=== PATIENT | male | born 2000 | race Caucasian/White ===

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

== ENCOUNTER 2019-06-25 15:06 | Observation (INO) ==
[2019-06-25 17:36] LABS: Basophils # (auto) 0.01 K/uL (0-0.2); Basophils % (auto) 0.1 %; Eosinophils # (auto) 0.03 K/uL (0-0.5); Eosinophils % (auto) 0.2 %; Hematocrit (blood only) 47.5 % (42-52); Hemoglobin 16.8 g/dL (14.0-18.0); Immature Granulocytes # (auto) 0.03 K/uL (0.00-0.02); Immature Granulocytes % (auto) 0.2 %; Lymphocytes # (auto) 0.76 K/uL (1.2-3.4); Lymphocytes % (auto) 5.4 %; Mean Corpuscular Hemoglobin 31.1 pg (25-34); Mean Corpuscular Hgb Conc 35.4 g/dL (32-36); Mean Platelet Volume 10.9 fL (7.4-10.4); Monocytes # (auto) 0.66 K/uL (0.11-0.59); Monocytes % (auto) 4.7 %; Neutrophils # (auto) 12.56 K/uL (1.4-6.5); Neutrophils % (auto) 89.4 %; Platelet Count 217 K/uL (130-400); RDW Coefficient of Variation 12.7 % (11.5-14.5); RDW Standard Deviation 40.6 fL (36.4-46.3); White Blood Count 14.05 K/uL (4.8-10.8)
[2019-06-25 17:43] LABS: Appearance Urine Turbid (Clear); Bacteria Urine Automated Negative (Negative); Blood Urine Negative (Negative); Cast Urine Automated 0 /lpf (0-5); Color Urine Dark Yellow; Epithelial Cell Urine Auto 0-5 /lpf (0-5); Glucose Urine UA Negative (Negative); Ketones Urine 1+ (Negative); Leukocyte Esterase Urine Negative (Negative); Nitrite Urine Negative (Negative); Protein Urine Negative (Negative); RBC Urine Automated 0-4 /hpf (0-4); Specific Gravity Urine 1.029 (1.000-1.030); Urobilinogen Urine Negative (Negative)
[2019-06-25 17:51] LABS: Albumin Level 4.4 gm/dl (3.4-5.0); BUN Creatinine Ratio 15.4 (10-20); Calcium 9.3 mg/dl (8.5-10.1); Est GFR (Non-African American) 107.9; Potassium 3.8 mmol/L (3.5-5.1)
[2019-06-25 17:53] LABS: Albumin Globulin Ratio 1.1 (0.9-2); Bilirubin,Total 2.3 mg/dl (0.2-1); Globulin 3.9 gm/dl (2.5-4.0); Total Protein 8.3 gm/dl (6.4-8.2)
[2019-06-25 17:54] LABS: Bilirubin Urine Negative (Negative); Ictotest Urine Negative (Negative)
[2019-06-25] MEDS ORDERED: IOVERSOL 100ml IV PRN (19:21)
--- NOTE | 2019-06-25 19:46 | CT Scan Report ---
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 A dose lowering technique was utilized adhering to th e principles of ALARA. COMPARISON STUDY: CT abdomen and pelvis 10/18/2016 FINDINGS: Clear lung bases. There is no pneumatosis or pneumoperitoneum. Imaged inferior cardiac chambers are u nremarkable. Mildly contracted gallbladder. Enlarged spleen measures up to 17.0 cm in length. Pancrea s, adrenal glands and liver appear unremarkable. Kidneys and ureters are within normal limits. Minima l nonspecific urinary bladder wall thickening. Unremarkable prostate. Aorta and IVC are unremarkable. Patency of the hepatic and portal veins. No adenopathy. Trace abdominal pelvic ascites. Partial distention of the large bowel with mild wall thickening seen probably within the hepatic flexure. Postoperative changes from ileocecectomy with end to side ileoco lic anastomosis. There is narrowing at the anastomotic site measuring up to 6 mm with dilated ileum p roximal to the anastomosis measuring up to 3.6 cm transversely. Enteric contrast flows through the an astomotic site into the right hemicolon. Several loops of distal small bowel demonstrate mild circumf erential wall thickening with interloop edema. Mildly prominent lymph nodes of the mesentery are like ly reactive. No sinus tracts or fistulas identified. The soft tissues are within normal limits. Bones appear to be intact. IMPRESSION: 1. Postoperative changes of interval ileocecectomy with end to side ileocolic anastomosis. Narrowing/ stricture at the anastomosis is noted with distended proximal small bowel compatible with partial sma ll bowel obstruction. Reactive associated interloop edema with trace abdominal pelvic ascites. 2. Multiple loops of small bowel within the lower abdomen and pelvis demonstrate wall thickening with additional equivocal wall thickening of the hepatic flexure. Correlate clinically to exclude acute C rohn's disease. 3. No pneumatosis or pneumoperitoneum. 4. Splenomegaly. ACT 112: Negative or not required by law. The above report was generated using voice recognition software. It may contain grammatical, syntax o r spelling errors. Electronically signed by: Jaxon Segura M.D. 06/25/2019 7:44 PM
[2019-06-25] MEDS ORDERED: SODIUM CHLORIDE 0.9% 1000ML 1,000 ML IV STA (19:59)
[2019-06-25] MEDS ORDERED: CIPROFLOXACIN 400 MG/200 ML BAG IV STA (20:04)
[2019-06-25] MEDS ORDERED: metroNIDAZOLE 500 MG/100 ML BAG IV STA (20:04)
--- NOTE | 2019-06-25 20:51 | Emergency Department Note ---
Entered by Erasmo Malik acting as a scribe for Faizan Medeiros MD ED Provider Note CHIEF COMPLAINT: Abdominal pain HISTORY OF PRESENT ILLNESS: The patient is a 18 year old male who presents to the Emergency Room with complaints of worsening mid abdominal pain that started about 2 days ago. The patient states the pain has been colicky since the onset and at its worst he rates it an 8/10. The patient reports that he feels as though he needs to move his bowels but he is unable to resulting in feeling very bloated. The patient notes he has been taking Ibuprofen for the pain but it has not been helping. The patient does have a history of Crohn's disease for which he follows with Dr. [place]. The patient reports that 2 weeks ago he had a colonoscopy with dilatation done. Per his mother, the patient had a partial colectomy 2 years ago. Pt denies LOC, headache, fevers, chills, diaphoresis, visual changes, neck pain, chest pain, breathing difficulties, nausea, vomiting, back pain, melena, hematochezia, urinary symptoms, numbness, weakness, lymphadenopathy, rash, or other complaints. REVIEW OF SYSTEMS: See HPI for pertinent positives and negatives. A total of ten systems were reviewed and were otherwise negative. PMHx/PSHx: Crohn's disease SOCIAL HISTORY: Patient lives at home. PHYSICAL EXAM: GENERAL: Awake, alert, well-appearing, in no distress HENT: Normocephalic, atraumatic. Oropharynx unremarkable. EYES: Normal conjunctiva. Sclera non-icteric. NECK: Inspection normal. Non-tender. Supple. No nuchal rigidity. FROM. No masses. RESPIRATORY: Clear to auscultation. No wheezes. No rales. Normal respiratory effort. CARDIAC: Normal rate. Normal rhythm. No murmurs. No rubs. Extremities warm and well perfused. Pulses equal. No JVD. GI: Soft, non-distended. Mid abdominal tenderness. No rebound or guarding. No masses. RECTAL: Deferred. MUSCULOSKELETAL: Atraumatic. Chest examination reveals no tenderness. The back is symmetrical on inspection without obvious abnormality. There is no CVA tenderness to palpation. No joint edema. LOWER EXTREMITIES: Calves are equal size bilaterally and non-tender. No edema. No discoloration. NEURO: Normal sensorium. No sensory or motor deficits noted. SKIN: No rash or jaundice noted. EMERGENCY DEPARTMENT COURSE: 1652: Past medical records reviewed. The patient was evaluated in room C11B, and a complete history and physical examination were performed. 1901: I reevaluated the patient and updated him on results. 1957: I spoke to Dr. Rosie TOVAR about the patient's case. He recommended having the patient admitted for IV fluids and antibiotics ( Cipro and Flagyl). He also suggested keeping the patient NPO. 2012: I spoke to Dr. Perez - [facility] Hospitalist about the patient's case. He agreed to accept the patient for further evaluation. 2014: I reassessed the patient and updated him on the treatment plan which he is agreeable to. MEDICAL DECISION MAKING: Prior records/ancillary studies reviewed. Triage Nursing notes reviewed and agree them. Additional history obtained from family. The patient's history was concerning for abdominal pain. Differential diagnosis: Etiologies such as complication of Crohn's disease, recurrence of intestinal stricture, appendicitis, diverticulitis, PUD, biliary pathology, UTI, pancr eatitis, obstruction, mesenteric ischemia, aortic pathology, infections, inflammatory bowel disease, renal colic, as well as others were entertained. Physical examination findings: As above. Mild tenderness without rebound or guarding. No active vomiting. ER treatment provided: IV normal saline hydration IV Cipro and IV Flagyl after consultation with GI On reassessment the patient felt better. Diagnostics interpreted by me: The labs revealed mild leukocytosis on CBC. Chemistry panel was unremarkable. Urinalysis negative. Imaging studies: The skin of the abdomen pelvis was performed and reveals a partial small bowel obstruction with stricture at the ileocolic anastomosis site Consultation: A consultation was placed with the GI doctor emergency medicine nurse practitioner Dr. Dylan Hernandez. The case was discussed and diagnostics were reviewed. He recommended IV Cipro and Flagyl, n.p.o. status, IV fluids, and admission by internal medicine. No NG tube recommended as patient has no nausea or vomiting. He will see the patient in the hospital. Patient was made with internal medicine. The patient was vini luated in the ER for further treatment. IMPRESSION: Partial small bowel obstruction Crohn's disease Mid abdominal pain PLAN: Being evaluated by the hospitalist The scribe's documentation has been prepared under my direction and personally reviewed by me in its entirety. I confirm that the note above accurately reflects all work, treatment, procedures, and medical decision making performed by me. 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 Beliefs That Will Affect Care: None Current Living Situation: Family Feels Safe at Home: Yes Smoking Status: Never smoker Second Hand Exposure: No ; Hx Alcohol Use: No Hx Substance Use: No Results & Data Vital Signs Vital Signs - 24 hr 06/25/19 15:25 06/25/19 17:07 06/25/19 17:21 Temperature 36.7 C Temperature Source Oral Pulse Rate 99 H 95 H 101 H Pulse Rate from SpO2 Sensor 97 H 102 H Respiratory Rate 18 17 23 Respiratory Depth Normal Blood Pressure 143/83 H 138/87 Blood Pressure Mean 103 99 Blood Pressure Position Sitting Pulse Oximetry 98 97 97 Oxygen Delivery Method Room Air Room Air Sepsis Recent Fever Within 48 Hours No Sepsis Action Taken by Nursing No Action Required 06/25/19 17:30 06/25/19 17:31 06/25/19 18:00 Temperature Temperature Source Pulse Rate 90 94 H 94 H Pulse Rate from SpO2 Sensor 93 H 94 H 94 H Respiratory Rate 22 21 24 Respiratory Depth Blood Pressure 138/79 130/87 Blood Pressure Mean 93 98 Blood Pressure Position Pulse Oximetry 97 97 97 Oxygen Delivery Method Sepsis Recent Fever Within 48 Hours Sepsis Action Taken by Nursing 06/25/19 18:01 06/25/19 18:30 06/25/19 18:31 Temperature Temperature Source Pulse Rate 96 H 98 H 113 H Pulse Rate from SpO2 Sensor 94 H 94 H 107 H Respiratory Rate 17 18 23 Respiratory Depth Blood Pressure 128/80 Blood Pressure Mean 96 Blood Pressure Position Pulse Oximetry 97 98 98 Oxygen Delivery Method Sepsis Recent Fever Within 48 Hours Sepsis Action Taken by Long-Term Medications Current Medication List: was personally reviewed by me Laboratory Data Attestation: I reviewed the patient's lab results. Result diagrams: 06/25/19 17:05 06/25/19 17:05 Lab Results 06/25/19 06/25/19 06/25/19 Range/Units 17:05 17:05 17:05 WBC 14.05 H (4.8-10.8) K/uL RBC 5.40 (4.7-6.1) M/uL Hgb 16.8 (14.0-18.0) g/dL Hct 47.5 (42-52) % MCV 88.0 (80-100) fL MCH 31.1 (25-34) pg MCHC 35.4 (32-36) g/dL RDW Std Deviation 40.6 (36.4-46.3) fL RDW Coeff of Arely 12.7 (11.5-14.5) % Plt Count 217 (130-400) K/uL MPV 10.9 H (7.4-10.4) fL Immature Gran % (Auto) 0.2 % Neut % (Auto) 89.4 % Lymph % (Auto) 5.4 % [place] % (Auto) 4.7 % Eos % (Auto) 0.2 % Baso % (Auto) 0.1 % Immature Gran # (Auto) 0.03 H (0.00-0.02) K/uL Neut # (Auto) 12.56 H (1.4-6.5) K/uL Lymph # (Auto) 0.76 L (1.2-3.4) K/uL [place] # (Auto) 0.66 H (0.11-0.59) K/uL Eos # (Auto) 0.03 (0-0.5) K/uL Baso # (Auto) 0.01 (0-0.2) K/uL Sodium 139 (136-145) mmol/L Potassium 3.8 (3.5-5.1) mmol/L Chloride 107 (98-107) mmol/L Carbon Dioxide 27 (21-32) mmol/L Anion Gap 5.0 (3-11) BUN 15 (7-18) mg/dl Creatinine 1.00 (0.6-1.4) mg/dl Est Cr Clr Drug Dosing 151.0 ml/min Est GFR ( Amer) 125.0 Est GFR (Non-Af Amer) 107.9 BUN/Creatinine Ratio 15.4 (10-20) Glucose 125 H (70-99) mg/dl Calcium 9.3 (8.5-10.1) mg/dl Total Bilirubin 2.3 H (0.2-1) mg/dl AST 18 (15-37) U/L ALT 54 (12-78) U/L Alkaline Phosphatase 122 H (45-117) U/L Total Protein 8.3 H (6.4-8.2) gm/dl Albumin 4.4 (3.4-5.0) gm/dl Globulin 3.9 (2.5-4.0) gm/dl Albumin/Globulin Ratio 1.1 (0.9-2) Lipase 85 (73-393) U/L Urine Color Dark Yellow Urine Appearance Turbid A (Clear) Urine pH 5.0 (4.5-7.5) Ur Specific [place] 1.029 (1.000-1.030) Urine Protein Negative (Negative) Urine Glucose (UA) Negative (Negative) Urine Ketones 1+ H (Negative) Urine Blood Negative (Negative) Urine Nitrite Negative (Negative) Urine Bilirubin Negative (Negative) Urine Urobilinogen Negative (Negative) Ur Leukocyte Esterase Negative (Negative) Urine WBC (Auto) 1-5 (0-5) /hpf Urine RBC (Auto) 0-4 (0-4) /hpf U Hyaline Cast (Auto) 0 (0-5) /lpf U Epithel Cells (Auto) 0-5 (0-5) /lpf Urine Bacteria (Auto) Negative (Negative) Administered Medications Ioversol (Optiray 320 100ml) 93 ml IV ONCE PRN PRN Reason: Interaction Checking Stop: 06/29/19 19:20 Last Admin: 06/25/19 19:21 Dose: 93 ml Documented by: [id number] Imaging Data Radiologist's Impression: Radiology results as stated below per my review and the radiologist's interpretation: ABDOMEN AND PELVIS CT WITH IV AND ORAL CONTRAST CT DOSE: 698.73 mGy.cm HISTORY: Acute mid abdominal pain with history of inflammatory bowel disease mid abd pain, hx of crohns, recent colon stricture TECHNIQUE: Multiaxial CT images of the abdomen and pelvis were performed following the IV administration of 93 cc of Optiray 320 and oral contrast. A dose lowering technique was utilized adhering to the principles of ALARA. COMPARISON STUDY: CT abdomen and pelvis 10/18/2016 FINDINGS: Clear lung bases. There is no pneumatosis or pneumoperitoneum. Imaged inferior cardiac chambers are unremarkable. Mildly contracted gallbladder. Enlarged spleen measures up to 17.0 cm in length. Pancreas, adrenal glands and liver appear unremarkable. Kidneys and ureters are within normal limits. Minimal nonspecific urinary bladder wall thickening. Unremarkable prostate. Aorta and IVC are unremarkable. Patency of the hepatic and portal veins. No adenopathy. Trace abdominal pelvic ascites. Partial distention of the large bowel with mild wall thickening seen probably within the hepatic flexure. Postoperative changes from ileocecectomy with end to side ileocolic anastomosis. There is narrowing at the anastomotic site measuring up to 6 mm with dilated ileum proximal to the anastomosis measuring up to 3.6 cm transversely. Enteric contrast flows through the anastomotic site into the right hemicolon. Several loops of distal small bowel demonstrate mild circumferential wall thickening with interloop edema. Mildly prominent lymph nodes of the mesentery are likely reactive. No sinus tracts or fistulas identified. The soft tissues are within normal limits. Bones appear to be intact. IMPRESSION: 1. Postoperative changes of interval ileocecectomy with end to side ileocolic anastomosis. Narrowing/stricture at the anastomosis is noted with distended proximal small bowel compatible with partial small bowel obstruction. Reactive associated interloop edema with trace abdominal pelvic ascites. 2. Multiple loops of small bowel within the lower abdomen and pelvis demonstrate wall thickening with additional equivocal wall thickening of the hepatic flexure. Correlate clinically to exclude acute Crohn's disease. 3. No pneumatosis or pneumoperitoneum. 4. Splenomegaly. ACT 112: Negative or not required by law. The above report was generated using voice recognition software. It may contain grammatical, syntax or spelling errors. Electronically signed by: Jaxon Segura M.D. 06/25/2019 7:44 PM Blood Pressure Blood Pressure Findings: Elevated blood pressure Blood Pressure Disposition: further management by hospitalist Discharge Plan Visit Data Chief Complaint: Abdominal Pain Stated Complaint: ABD PAIN, POST-COLONOSCOPY ED Provider: Faizan Medeiros Discharge Problem: Partial small bowel obstruction, Crohn's disease, Central abdominal pain Patient Disposition: Being Evaluated by Hospitalist Forms Stand Alone Forms: Content Circles Prescriptions Prescriptions: No Action Entyvio 300 mg recon soln 300 mg IV .COMPLEX Qty: 1 RF: 0 ibuprofen [Advil] 200 mg Tablet 400 mg PO Q6H PRN (Reason: Pain) RF: 0 Referrals Referrals: PCP,NO [Primary Care Provider] - Discharge Problem: Crohn's disease Qualifiers: Gastrointestinal tract location: unspecified location Digestive disease complication type: unspecified complication Qualified Code(s): K50.919 - Crohn's disease, unspecified, with unspecified complications The scribe's documentation has been prepared under my direction and personally reviewed by me in its entirety. I confirm that the note above accurately reflects all work, treatment, procedures, and medical decision making performed by me.
--- NOTE | 2019-06-25 21:46 | History & Physical Report ---
Date of Service June 25, 2019 Assessment & Plan (1) Partial small bowel obstruction: Clifford is a 18-year-old male with a past medical history of Gilbert's and Crohn's disease who presents with a partial small bowel obstruction. Partial small bowel obstruction Known stricture which was partially dilated on colonoscopy [address] abdomen shows anastomosis stricture, distended proximal small bowel Case discussed with GI by emergency providers. Recommended Cipro/Flagyl N.p.o. Pending GI consultation over the weekend NG placement deferred at this time, patient having bowel movements and passing gas with decreasing abdominal distention. Low threshold to his NG for discuss ion if he clinically worsens Crohn's disease Vedolizumab infusion deferred due to admission, normally performed at the cancer center and supervised by Dr. [place]. Infusion per GI recommendations No history of steroid use for Crohn's flares Defer steroids at this time, suspect acute presentation due to food bolus and partial obstruction with stricture rather than acute Crohn's flare - GI consulted [facility]re[facility] Noted, no acute intervention FEN GI: Half-normal saline +20 KCl 120 cc/h DVT prophylaxis, low risk, ambulate CODE STATUS: Full code, discussed with patient (2) Crohn's disease: (3) Central abdominal pain: (4) Encounter for physical examination related to employment: (5) Crohns disease: (6) Anorexia: (7) Weight loss: History of Present Illness Chief Complaint: Stomach pain, abdominal distention Primary Care Provider: NO PCP Clifford is a 18-year-old male with past medical history of Crohn's with surgical intervention in 2014 who presents with approximately 2 days of stomach pain, indigestion, constipation with overflow diarrhea, and abdominal distention. He reports that he had large meals over [place] and shortly after that began to have abdominal pain and distention with constipation and overflow diarrhea. He denies fever, chills, sweats, vomiting, nausea. He presented to the hospital after he had failure to improve and on CT was noted to have a stricture with proximal small bowel distention. He had a colonoscopy 2 weeks ago with dilation. He is followed by Dr. [place]. He reports that he is on vedolizumab every 2 months prior to admission, was due for an infusion today but deferred in setting of his acute illness. He has never been on steroid treatment for Crohn's.He feels that since admission his symptoms are improving, and his abdominal distention has improved. He had a bowel movement 20 minutes ago which was mostly liquid but with some formed stool. No blood, no melena. Medical history, Crohn's, Gilbert's Surgical history: Small bowel resection Family history: Reviewed Social history: Never smoker, no alcohol use, no substance use. Lives in [place] with his family. CODE STATUS: Full code Allergies Allergy/AdvReac Type Severity Reaction Status Date / Time infliximab Allergy Severe 3RD DOSE Verified 06/25/19 20:47 --> FACIAL REDNESS, SOB Home Medications Home Medications Medication Instructions Recorded Confirmed Type vedolizumab 300 mg intravenous 300 mg IV .COMPLEX #1 ea 05/04/19 06/25/19 Rx solution ibuprofen [Advil] 400 mg PO Q6H PRN 06/25/19 06/25/19 History Past Med/Surg History Medical History Crohns disease Surgical History History of bowel resection 2017 FOR CROHN'S DISEASE History of colonoscopy X MULTIPLE History of esophagogastroduodenoscopy (EGD) Family History Other No pertinent family history in first degree relatives Social History Preferred Language: Bulgarian Communication Ability: Effective 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 NAD. Cooperative. HEENT: Atraumatic, normocephalic. Pulm: CTAB A&P. -wheezes, -rales, -rhonchi. Symmetrical chest rise. No increase work of breathing. No respiratory distress. Cardiac: RRR, -mrg. Radial pulses intact and symmetrical. Abdominal: Softly distended. Nontender. No rebound tenderness. No tympany. Bowel sounds increased. Extremity: Moving all extremities equally, no edema, no erythema. PT pulses intact and symmetrical. CN II: Visual metcalf are full to confrontation. Pupils are equal and react to light and accomidation. Visual acuity grossly intact. CN III, IV, : At primary gaze, there is no eye deviation. EoM intact without nystagmus. No visual field cuts. CN V: Facial sensation is intact to soft touch in all 3 divisions bilaterally. CN VII: No facial asymmetry, full strength to eyebrow raise, smile, eye close, and cheek puff. CN VII: Hearing is grossly intact. CN IX, X: Palate elevates symmetrically. Phonation is normal without dysarthria. CN XI: Head turning and shoulder shrug are intact CN XII: Tongue protrudes midline. Sensory: Light touch, pinprick intact in upper and low extremities without deficit or a symmetry. Strength: RUE: Shoulder flexion/extension/internal rotation/external rotation, elbow flexion/extension, finger flexion/extension, ion exchange operator strength, interosseous 5/5 LUE: Shoulder flexion/extension/internal rotation/external rotation, elbow flexion/extension, finger flexion/extension, ion exchange operator strength, interosseous 5/5 RLE: Hip flexion, knee flexion/extension, ankle plantar flexion/dorsiflexion 5/5 LLE: Hip flexion, knee flexion/extension, ankle plantar flexion/dorsiflexion 5/5 Results & Data Vital Signs (Past 12 Hours) Vital Signs Temp Pulse Resp BP Pulse Ox 06/25/19 18:31 113 H 23 98 06/25/19 18:30 98 H 18 128/80 98 06/25/19 18:01 96 H 17 97 06/25/19 18:00 94 H 24 130/87 97 06/25/19 17:31 94 H 21 97 06/25/19 17:30 90 22 138/79 97 06/25/19 17:21 101 H 23 97 06/25/19 17:07 95 H 17 138/87 97 06/25/19 15:25 36.7 C 99 H 18 143/83 H 98 Supervising Physician Co-Signing Physician Notes Attending addendum: I have physically seen this patient, have supervised the medical residents activities, and agree with the H&P unless as otherwise noted. Assessment and Plan: Partial small bowel obstruction/Crohn's disease/history of previous bowel resection- Cipro and Flagyl IV per recommendations of GI. NPO IV fluids Zofran 4 mg IV every 6 hours PRN. Famotidine 20 mg IV every 12 hours. Patient has not been treated with steroids in the past Discussed with patient avoidance of food bolusing which likely brought this problem on, as he had 3 successive [place] meals 1 hour apart. 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 [place], or covering physician. Remainder of orders and notations as noted. Resident Activity Tracking Resident Involvement: Resident Care Provided Care Provided: Adult Hospital Medicine (1) Crohn's disease Digestive disease complication type: unspecified complication Gastrointestinal tract location: unspecified location Qualified Code(s): K50.919 - Crohn's disease, unspecified, with unspecified complications
[2019-06-25] MEDS ORDERED: ACETAMINOPHEN 325 MG TAB PO PRN (23:10)
[2019-06-25] MEDS ORDERED: ONDANSETRON INJ 2 MG/ML 2 ML VIAL IV PRN (23:10)
[2019-06-26] MEDS: SODIUM CHLOR 0.45% + 20MEQ KCL 20 MEQ/1,000 ML BAG IV SCH ×3 (00:21→18:25)
[2019-06-26] MEDS: metroNIDAZOLE 500 MG/100 ML BAG IV SCH ×3 (06:04→22:38)
[2019-06-26 06:13] LABS: BUN Creatinine Ratio 15.3 (10-20); Calcium 8.9 mg/dl (8.5-10.1); Creatinine Clr Calc Pharmacy 161.3 ml/min; Est GFR (African American) 138.3; Est GFR (Non-African American) 119.3; Potassium 4.1 mmol/L (3.5-5.1)
[2019-06-26] MEDS: CIPROFLOXACIN 400 MG/200 ML BAG IV SCH ×2 (09:37→20:25)
--- NOTE | 2019-06-26 11:30 | Gastrointestinal Consultation ---
Date of Consultation June 26, 2019 Assessment & Plan (1) Partial small bowel obstruction: Patient with anastomotic stricture post ileocolonic resection for Crohn's disease, had dilation recently up to 10 mm, current presentation is likely related to excessive food intake. Now symptoms completely resolved and abdomen is flat on exam. Advised the patient to do small frequent meals. Use Miralax once daily. Continue ABx for 5 days only. Needs serial repeat colonoscopy as OP for re-dilation of the stricture and aim to reach 15 mm balloon size. Will arrange with . Clear liquids now and advance as tolerated. If any change in clinical status or signs of recurrent obstruction then would consider colonoscopy this admission. MRCP as OP in view of elevated ALP to r/o concomitant PSC. Recall GI if needed. (2) Crohn's disease: (3) Elevated alkaline phosphatase level: (4) Small bowel anastomotic stricture: History of Present Illness Attending Physician: Deejay Boss MD 18 years old male patient with medical history of Crohn's disease s/p resection with ileocolonic anastomosis, currently on Entyvio, recent colonoscopy 2 weeks ago showed anastomotic stenosis dilated up to 10 mm with balloon, he was doing fine but on he ate 4 heavy meals in a short duration, afterwards he felt bloating, fullness and had no BM then started having abdominal pain hence presented to the hospital, CT scan showed narrowing/stricture at the anastomosis is noted with distended proximal small bowel compatible with partial small bowel obstruction. Multiple loops of small bowel within the lower abdomen and pelvis demonstrate wall thickening with additional equivocal wall thickening of the hepatic flexure. He was kept NPO and started on IV ABx and had 4 large BM resulting in complete deflation of his abdominal distention. His pain resolved now, no nausea or vomiting and feels hungry. He missed his Entyvio which was due yesterday. Allergies Allergy/AdvReac Type Severity Reaction Status Date / Time infliximab Allergy Severe 3RD DOSE Verified 06/25/19 20:47 --> FACIAL REDNESS, SOB Home Medications Home Medications Medication Instructions Recorded Confirmed Type vedolizumab 300 mg intravenous 300 mg IV .COMPLEX #1 ea 05/04/19 06/25/19 Rx solution ibuprofen [Advil] 400 mg PO Q6H PRN 06/25/19 06/25/19 History Patient History Medical History Crohns disease Surgical History History of bowel resection 2017 FOR CROHN'S DISEASE History of colonoscopy X MULTIPLE History of esophagogastroduodenoscopy (EGD) Family History Other No pertinent family history in first degree relatives Social History Preferred Language: Maori Communication Ability: Effective Import Clerk Required: No Beliefs That Will Affect Care: None Current Living Situation: Parent and Family Other Information That Helps Us Care for You: No Feels Safe at Home: Yes Safety Concerns: Feels Safe At This Time Smoking Status: Never smoker Second Hand Exposure: No ; Hx Alcohol Use: No Hx Substance Use: No Review of Systems Constitutional: no fever, no chills, no fatigue and no weight loss Eyes: no eye pain and no worsening vision Ear, Nose, Mouth, Throat: no tinnitus, no dizziness, no nasal discharge and no epistaxis Respiratory: no cough, no dyspnea, no dyspnea on exertion and no wheezing Cardiovascular: no chest pain, no orthopnea, no palpitations and no edema Gastrointestinal: as per Subjective / HPI Musculoskeletal: no stiffness and no myalgia Neurologic: no localized weakness, no paralysis, no tremor(s) and no headache(s) Endocrine: no polydipsia and no polyuria Hematologic / Lymphatic: no easy bleeding and no night sweats Physical Exam Constitutional: + well hydrated, cooperative and comfortable Eyes: PERRL, conjunctivae normal, anicteric sclerae ENMT: external ear and nose normal, oropharynx normal Neck: normal visual inspection and trachea midline Respiratory: normal respiratory effort, lungs clear to auscultation Auscultation: no wheezes Cardiovascular: RRR, no murmur, no edema Gastrointestinal (Abdomen): normal bowel sounds, soft, nontender, no hepatosplenomegaly Musculoskeletal: no cyanosis or clubbing, extremities motor strength 5/5 Skin: no rashes, warm and dry Neurologic: awake; no focal motor deficits Motor/Sensory: no tremor Results & Data Vital Signs (Past 12 Hours) Vital Signs Temp Pulse Resp BP Pulse Ox 06/26/19 08:10 36.7 C 97 H 19 122/77 97 Laboratory Results Laboratory Results - last 24 hr 06/25/19 06/25/19 06/25/19 17:05 17:05 17:05 WBC 14.05 H RBC 5.40 Hgb 16.8 Hct 47.5 MCV 88.0 MCH 31.1 MCHC 35.4 RDW Std Deviation 40.6 RDW Coeff of Arely 12.7 Plt Count 217 MPV 10.9 H Immature Gran % (Auto) 0.2 Neut % (Auto) 89.4 Lymph % (Auto) 5.4 Maverick % (Auto) 4.7 Eos % (Auto) 0.2 Baso % (Auto) 0.1 Immature Gran # (Auto) 0.03 H Neut # (Auto) 12.56 H Lymph # (Auto) 0.76 L Maverick # (Auto) 0.66 H Eos # (Auto) 0.03 Baso # (Auto) 0.01 Sodium 139 Potassium 3.8 Chloride 107 Carbon Dioxide 27 Anion Gap 5.0 BUN 15 Creatinine 1.00 Est Cr Clr Drug Dosing 151.0 Est GFR ( Amer) 125.0 Est GFR (Non-Af Amer) 107.9 BUN/Creatinine Ratio 15.4 Glucose 125 H Calcium 9.3 Total Bilirubin 2.3 H AST 18 ALT 54 Alkaline Phosphatase 122 H Total Protein 8.3 H Albumin 4.4 Globulin 3.9 Albumin/Globulin Ratio 1.1 Lipase 85 Urine Color Dark Yellow Urine Appearance Turbid A Urine pH 5.0 Ur Specific [place] 1.029 Urine Protein Negative Urine Glucose (UA) Negative Urine Ketones 1+ H Urine Blood Negative Urine Nitrite Negative Urine Bilirubin Negative Urine Urobilinogen Negative Ur Leukocyte Esterase Negative Urine WBC (Auto) 1-5 Urine RBC (Auto) 0-4 U Hyaline Cast (Auto) 0 U Epithel Cells (Auto) 0-5 Urine Bacteria (Auto) Negative 06/26/19 05:09 WBC RBC Hgb Hct MCV MCH MCHC RDW Std Deviation RDW Coeff of Arely Plt Count MPV Immature Gran % (Auto) Neut % (Auto) Lymph % (Auto) Maverick % (Auto) Eos % (Auto) Baso % (Auto) Immature Gran # (Auto) Neut # (Auto) Lymph # (Auto) Maverick # (Auto) Eos # (Auto) Baso # (Auto) Sodium 140 Potassium 4.1 Chloride 109 H Carbon Dioxide 28 Anion Gap 3.0 BUN 14 Creatinine 0.92 Est Cr Clr Drug Dosing 161.3 Est GFR ( Amer) 138.3 Est GFR (Non-Af Amer) 119.3 BUN/Creatinine Ratio 15.3 Glucose 92 Calcium 8.9 Total Bilirubin AST ALT Alkaline Phosphatase Total Protein Albumin Globulin Albumin/Globulin Ratio Lipase Urine Color Urine Appearance Urine pH Ur Specific [place] Urine Protein Urine Glucose (UA) Urine Ketones Urine Blood Urine Nitrite Urine Bilirubin Urine Urobilinogen Ur Leukocyte Esterase Urine WBC (Auto) Urine RBC (Auto) U Hyaline Cast (Auto) U Epithel Cells (Auto) Urine Bacteria (Auto) (1) Crohn's disease Digestive disease complication type: unspecified complication Gastrointestinal tract location: unspecified location Qualified Code(s): K50.919 - Crohn's disease, unspecified, with unspecified complications
--- NOTE | 2019-06-26 12:47 | Hospitalist Progress Note ---
Date of Service June 26, 2019 Assessment & Plan (1) Partial small bowel obstruction: Leukocytosis - WBCs 14 this morning, afebrile Continue cipro/flagyl IVF until taking consistent PO GI consulted: - Advised the patient to do small frequent meals. - Use Miralax once daily. - Continue ABX for 5 days only. - Needs serial repeat colonoscopy as OP for re-dilation of the stricture and aim to reach 15 mm balloon size. GI will arrange with . - Clear liquids now and advance as tolerated. - MRCP as OP in view of elevated ALP to r/o concomitant PSC. (2) Crohn's disease: Vedolizumab infusion deferred due to admission, normally performed at the cancer center and supervised by Dr. Montana. Infusion per GI recommendations No history of steroid use for Crohn's flares Defer steroids at this time - GI consulted (3) Small bowel anastomotic stricture: as above (4) Elevated alkaline phosphatase level: 122 - recheck outpatient after acute illness is resolved Biliruben 2.3 but patient has history of Gilbert's AST/ALT wnl Subjective Mr. Muro is feeling better today, abdominal pain is minimal. He is having bowel movements and passing gas. ROS Constitutional: no chills, aches, sweats or fever Respiratory: no sob,cough, sputum, or wheezing Cardiac: no chest pain, palpitations, edema, orthopnea or lightheadedness GI: no abdominal pain, nausea, vomiting, diarrhea or constipation : no dysuria or hesitancy Extremities: no joint pain or weakness Skin: no rash All other systems reviewed and negative Physical Exam Physical Exam: General: no distress Eyes: normal inspection, PERLL Respiratory: chest non tender, clear to auscultation, normal breath sounds, no respiratory distress, no accessory muscle use Cardiac: regular rate and rhythm, no rub or gallop, no murmur, no edema, no jvd GI/: active bowel sounds, no abd pain or tenderness, soft, non distended Extremities: normal range of motion, normal strength, non tender Neuro/Psych: alert and oriented x 3, normal mood and affect Skin: normal color, dry Results & Data Vital Signs (Past 12 Hours) Vital Signs Temp Pulse Resp BP Pulse Ox 06/26/19 08:10 36.7 C 97 H 19 122/77 97 PG Care Time/CCT Total # of Minutes Spent Total Time Spent with Patient: Total time spent is greater than 50% in coordination of care (as documented) at patient's floor/unit and/or counseling patient: (1) Crohn's disease Digestive disease complication type: unspecified complication Gastrointestinal tract location: unspecified location Qualified Code(s): K50.919 - Crohn's disease, unspecified, with unspecified complications
--- NOTE | 2019-06-26 22:20 | Billing Data ---
Date of Service June 26, 2019 Coding Level of Care Code 07294 Initial Inpt Care Lvl 2
[2019-06-27] MEDS: SODIUM CHLOR 0.45% + 20MEQ KCL 20 MEQ/1,000 ML BAG IV SCH (02:59)
[2019-06-27] MEDS: metroNIDAZOLE 500 MG/100 ML BAG IV SCH (05:36)
[2019-06-27 08:15] LABS: Basophils # (auto) 0.01 K/uL (0-0.2); Basophils % (auto) 0.2 %; Eosinophils # (auto) 0.17 K/uL (0-0.5); Hematocrit (blood only) 44.8 % (42-52); Hemoglobin 15.6 g/dL (14.0-18.0); Immature Granulocytes # (auto) 0.01 K/uL (0.00-0.02); Immature Granulocytes % (auto) 0.2 %; Lymphocytes # (auto) 1.62 K/uL (1.2-3.4); Mean Corpuscular Hgb Conc 34.8 g/dL (32-36); Mean Corpuscular Volume 89.1 fL (80-100); Mean Platelet Volume 10.4 fL (7.4-10.4); Monocytes # (auto) 0.52 K/uL (0.11-0.59); Monocytes % (auto) 9.3 %; Neutrophils # (auto) 3.25 K/uL (1.4-6.5); Neutrophils % (auto) 58.3 %; Platelet Count 207 K/uL (130-400); RDW Coefficient of Variation 12.7 % (11.5-14.5); Red Blood Count 5.03 M/uL (4.7-6.1); White Blood Count 5.58 K/uL (4.8-10.8)
[2019-06-27] MEDS: CIPROFLOXACIN 400 MG/200 ML BAG IV SCH (08:40)
[2019-06-27 08:44] LABS: BUN Creatinine Ratio 10.4 (10-20); Calcium 9.3 mg/dl (8.5-10.1); Creatinine Clr Calc Pharmacy 156.2 ml/min; Est GFR (Non-African American) 114.8; Potassium 4.2 mmol/L (3.5-5.1)
--- NOTE | 2019-06-27 11:35 | Discharge Summary ---
Date of Service June 27, 2019 Admission HPI Per Admitting Provider Clifford is a 18-year-old male with past medical history of Crohn's with surgical intervention in 2014 who presents with approximately 2 days of stomach pain, indigestion, constipation with overflow diarrhea, and abdominal distention. He reports that he had large meals over [place] and shortly after that began to have abdominal pain and distention with constipation and overflow diarrhea. He denies fever, chills, sweats, vomiting, nausea. He presented to the hospital after he had failure to improve and on CT was noted to have a stricture with proximal small bowel distention. He had a colonoscopy 2 weeks ago with dilation. He is followed by Dr. Montana. He reports that he is on vedolizumab every 2 months prior to admission, was due for an infusion today but deferred in setting of his acute illness. He has never been on steroid treatment for Crohn's.He feels that since admission his symptoms are improving, and his abdominal distention has improved. He had a bowel movement 20 minutes ago which was mostly liquid but with some formed stool. No blood, no melena. Medical history, Crohn's, Gilbert's Surgical history: Small bowel resection Family history: Reviewed Social history: Never smoker, no alcohol use, no substance use. Lives in [place] with his family. CODE STATUS: Full code Principal Diagnosis SBO Discharge Exam Constitutional WD/WN, vitals as above Respiratory normal respiratory effort, lungs clear to auscultation Cardiovascular RRR, no murmur, no edema Gastrointestinal (Abdomen) Inspection/Auscultation: abdomen normal to inspection and normal bowel sounds; abdomen not distended Percussion/Palpation: abdomen soft; abdomen nontender Musculoskeletal no cyanosis or clubbing, extremities motor strength 5/5 Skin no rashes, warm and dry Neurologic moves all extremities and awake Psychiatric A+Ox3, euthymic affect Discharge Data Allergies Allergy/AdvReac Type Severity Reaction Status Date / Time infliximab Allergy Severe 3RD DOSE Verified 06/25/19 20:47 --> FACIAL REDNESS, SOB Consultations 06/25/19 20:14 ED Decision to Admit Stat 06/25/19 23:10 Consult Gastroenterology Routine Ordered Studies 06/25/19 16:58 CT abd pelvis oral and IV con Stat Hospital Course (1) Partial small bowel obstruction: Leukocytosis resolved Continue cipro/flagyl GI consulted: - Advised the patient to do small frequent meals. - Use Miralax once daily. - Continue ABX for 5 days only. - Needs serial repeat colonoscopy as OP for re-dilation of the stricture and aim to reach 15 mm balloon size. GI will arrange with . - tolerating low fiber/low fat diet (2) Crohn's disease: Vedolizumab infusion deferred due to admission, normally performed at the cancer center and supervised by Dr. Montana. Infusion per GI recommendations No history of steroid use for Crohn's flares Defer steroids at this time - GI consulted (3) Splenomegaly: Seen incidentally on CT. Patient reports he was told after previous imaging that he had a large spleen Per UpToDate - a variation by 10 to 20 percent of spleen size is not considered significant unless there is a trend over time. - recommend follow up with pcp as patient is not having left upper quadrant pain or abnormal blood counts. (4) Elevated alkaline phosphatase level: - MRCP as OP in view of elevated ALP to r/o concomitant PSC - Patient reports he has one scheduled in early June - repeat lab work after acute illness is resolved (5) Gilbert disease: - Bili was 2.3 on admission, no concern for gallbladder on CT, leukocytosis resolved, no ruq pain - may want to consider repeat lab work outpatient for resolution Total Time Total Time Spent Total Time Spent (In Minutes): greater than 30 minutes Discharge Plan Discharge Items Patient Disposition: Home - Self-Care Reason For Visit: SBO Discharge Diagnosis: SBO Activity: Resume your previous activity Non-emergency contact: Primary Care Provider Call non-emergency contact if: you have any medication questions, your symptoms worsen, your pain is worsening and you have a fever Follow-up/Referrals: PCP,NO [Primary Care Provider] - Diet: Regular Diet Comment: advance diet as tolerated Addtl Attending Provider Instructions: You were admitted for a partial small bowel obstruction: - You will continue with ciprofloxacin and metronidazole for a total of 5 days. Please complete your entire medications regimen - Eat small, frequent meals rather than large meals - Use Miralax once daily. - GI will arrange with Dr. Montana for you to have an outpatient colonoscopy (2) Crohn's disease: resume Vedolizumab infusions (3) Elevated alkaline phosphatase level: - Have your primary care provider recheck this level as outpatient after acute i llness is resolved - GI recommends an outpatient MRCP (MRI of gallbladder and duct system) as well (4) Splenomegally - seen incidentally on CT - because you are not having any upper left quadrant abdominal pain and blood counts are all within normal limits this may just indicate a normal variant on spleen size. Please follow up with your primary care provider concerning any necessity for repeat imaging. You should return to the hospital if you develop upper left quadrant abdominal pain Pending Studies at Discharge: No Stand-Alone Forms: My [facility] [employer] Work/School Release (Inpt), Smoking Cessation Medications and DC Order Prescriptions: New ciprofloxacin HCl 500 mg tablet 500 mg PO BID Qty: 7 RF: 0 metronidazole 500 mg tablet 500 mg PO TID Qty: 11 RF: 0 Continued Entyvio 300 mg recon soln 300 mg IV .COMPLEX Qty: 1 RF: 0 ibuprofen [Advil] 200 mg Tablet 400 mg PO Q6H PRN (Reason: Pain) RF: 0 Discharge Orders: Discharge Order (Routine); Ordered 06/27/19 Ordered By: Shanti Tubbs Admission Data Admit Date/Time: 06/25/19 21:46 Attending Provider: Deejay Boss Admit Provider: Raffy Grier Primary Care Provider: PCP,NO Other Providers: Eulalio Montana ; Deejay Boss. Other Interventions: Discharge Summary Assessment (RN) Last Done: 06/27/19 11:01 DC Date/Time DO NOT enter until pt leaves facility: 06/27/19 13:55 Supervising Physician Co-Signing Physician Notes I supervised Shanti Tubbs NP on this patient's care. I examined the patient today independently of her. I discussed the plan of care with her with the plan being as written in her note except for any following changes/exceptions: None. Feeling well. Ready to go home. Follow up for colo with Dr. Montana.
== END 2019-06-27 13:55 | disposition home or self-care (01) ==
LOC: ED 15:06 → 3N 21:46 → INTOOBSV 21:46 → SUATTDRO 21:46 → 3N 22:07